=== PATIENT | female | born 1995 | race Caucasian/White ===

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

== ENCOUNTER 2017-05-08 19:01 | Emergency (ER) | payer OTHER ==
[2017-05-08 19:12] VITALS: BP 123/62; PULSE 80; TEMP 98; BMI 28.6
[2017-05-08] MEDS ORDERED: IBUPROFEN 600 MG TABLET (FP) PO ONE ×2 (19:35→19:48)
--- NOTE | 2017-05-08 19:43 | PDOC ---
History of Present Illness - General Chief Complaint: Sore Throat Stated Complaint: SORE THROAT Time Seen by Provider: 05/08/17 19:16 History Source: Patient Exam Limitations: No Limitations - History of Present Illness Initial Comments: 05/08/17 19:56 22-year-old female presents to the ED with sore throat since yesterday associate it with a frontal headache. Patient also complaining of nasal congestion. Patient denies fever, chills, recent travel, recent illness or recent sick contacts. Patient denies medical history. Timing/Duration: other Severity: mild Associated Symptoms: reports: headaches Past History - Travel Traveled outside of the country in the last 30 days: No Close contact w/someone who was outside of country & ill: No - Past Medical History Allergies/Adverse Reactions: Allergies Allergy/AdvReac Type Severity Reaction Status Date / Time Penicillins Allergy Intermediate Hives Verified 05/08/17 19:09 Home Medications: Ambulatory Orders NK [No Known Home Medication] 10/20/16 Asthma: No Cancer: No Cardiac Disorders: No Diabetes: No HTN: No Seizures: No Thyroid Disease: No Other medical history: Pt denies - Reproductive History (#): 3 Para: 0 Cervical CA: No Dysfunctional Uterine Bleeding: No Ectopic : No Endometrial CA: No Polycystic Ovaries: No Tubal Ligation: No Spontaneous : 2 - Immunization History Immunization Up to Date: Yes - Psycho/Social/Smoking Cessation Hx Anxiety: No Suicidal Ideation: No Smoking History: Never smoked Have you smoked in the past 12 months: No If you are a former smoker, when did you quit?: 06/2016 Information on smoking cessation initiated: No Hx Alcohol Use: No Drug/Substance Use Hx: No Substance Use Type: None Hx Substance Use Treatment: No Patient Lives Alone: No Lives with/in: spouse/SO Review of Systems - Review of Systems Able to Perform ROS?: No Is the patient limited Macedonian proficient: No Constitutional: No: Symptoms Reported HEENTM: Yes: Throat Pain Respiratory: No: Symptoms reported Musculoskeletal: No: Symptoms Reported Neurological: Yes: Headache Endocrine: No: Symptoms Reported *Physical Exam - Vital Signs Last Vital Signs Temp Pulse Resp BP Pulse Ox 98.0 F 80 20 123/62 99 05/08/17 19:10 05/08/17 19:10 05/08/17 19:10 05/08/17 19:10 05/08/17 19:10 - Physical Exam General Appearance: Yes: Nourished, Appropriately Dressed. No: Apparent Distress HEENT: positive: EOMI, MARGARITA, TMs Normal, Tonsillar Exudate (3+ right tonsil) Neck: positive: Supple, Lymphadenopathy (R) (upper cervical) Respiratory/Chest: positive: Lungs Clear, Normal Breath Sounds. negative: Respiratory Distress, Accessory Muscle Use Cardiovascular: positive: Regular Rhythm, Regular Rate. negative: Murmur Integumentary: positive: Normal Color, Warm, Moist Neurologic: positive: Motor Strength 5/5 (ambulatory) Medical Decision Making - Medical Decision Making 05/08/17 20:02 Patient with sore throat and headache. Patient on exam had exudate to 3+ tonsils on the right. Patient with a for rapid strep and Motrin. 05/08/17 20:07 strep negative. Patient will be given prescription for azithromycin due to clinical presentation *DC/Admit/Observation/Transfer Diagnosis at time of Disposition: Acute streptococcal pharyngitis - Discharge Dispostion Disposition: HOME Condition at time of disposition: Good - Referrals Referrals: Shasta Middleton MD [Primary Care Provider] - - Patient Instructions Printed Discharge Instructions: DI for Strep Throat Additional Instructions: Please take azithromycin as prescribed . May take Motrin for discomfort. please eat soft nonabrasive food.
== END 2017-05-08 20:14 | disposition home or self-care (01) ==
LOC: JERFT 19:01
DX: J02.0 Streptococcal pharyngitis (principal)
CPT/HCPCS: 87070; 87430; 99281-25

== ENCOUNTER 2017-07-04 22:57 | Emergency (ER) | payer OTHER ==
[2017-07-04 23:02] VITALS: BP 121/59; PULSE 95; TEMP 98.5; BMI 27.8
[2017-07-04 23:35] LABS: URINE APPEARANCE SLCLOUDY; URINE BILIRUBIN NEGATIVE (NEGATIVE); URINE BLOOD NEGATIVE (NEGATIVE); URINE COLOR YELLOW; URINE GLUCOSE (UA) NEGATIVE (NEGATIVE); URINE KETONE NEGATIVE (NEGATIVE); URINE LEUK ESTERASE NEGATIVE (NEGATIVE); URINE NITRITE NEGATIVE (NEGATIVE); URINE PROTEIN NEGATIVE (NEGATIVE); URINE UROBILINOGEN NEGATIVE mg/dL (0.2-1.0)
[2017-07-04 23:46] LABS: BASOPHIL 0.6 % (0-2.0); EOSINOPHIL 1.1 % (0-4.5); MCH 31.1 pg (25.7-33.7); MCHC 34.2 g/dl (32.0-36.0); MEAN PLT VOLUME 8.5 fl (7.5-11.1); NEUTROPHILS 61.4 % (42.8-82.8); PLATELET COUNT 338 K/MM3 (134-434); RDW 13.2 % (11.6-15.6); WHITE BLOOD COUNT 11.6 K/mm3 (4.0-10.0)
[2017-07-05 00:12] LABS: ALK PHOS 54 U/L (45-117); ANION GAP 8 (8-16); BILIRUBIN,TOTAL 0.3 mg/dL (0.2-1.0); CO2 26 mmol/L (21-32); CREATININE 0.7 mg/dL (0.55-1.02); GLUCOSE,RANDOM 83 mg/dL (74-106); SGOT/AST 22 U/L (15-37); SGPT/ALT 40 U/L (12-78)
--- NOTE | 2017-07-05 00:35 | PDOC ---
History of Present Illness - General Chief Complaint: Pain Stated Complaint: ABD PAIN () Time Seen by Provider: 07/04/17 23:18 History Source: Patient Exam Limitations: No Limitations - History of Present Illness Travel History: No Initial Comments: 07/05/17 00:26 22yo Female patient with no significant past medical history presents to ED c/o LLQ abd pain. Patient states she found out she was last week and began having pains yesterday. She denies vaginal bleeding, vomiting, diarrhea, fever, chills, diff breathing, or any other complaints at this time. LNMP: May 28. Timing/Duration: reports: constant Quality: reports: mild Abdominal Pain Onset Location: reports: LLQ Pain Radiation: reports: no radiation Activities at Onset: reports: none Past History - Travel Traveled outside of the country in the last 30 days: No Close contact w/someone who was outside of country & ill: No - Past Medical History Allergies/Adverse Reactions: Allergies Allergy/AdvReac Type Severity Reaction Status Date / Time Penicillins Allergy Intermediate Hives Verified 07/04/17 23:02 Home Medications: Ambulatory Orders Azithromycin [Zithromax 250mg Tablets -] 250 mg PO UTDICT #6 tab 05/08/17 Asthma: No Cancer: No Cardiac Disorders: No Diabetes: No HTN: No Seizures: No Thyroid Disease: No - Reproductive History (#): 3 Para: 0 Cervical CA: No Dysfunctional Uterine Bleeding: No Ectopic : No Endometrial CA: No Polycystic Ovaries: No Tubal Ligation: No Spontaneous : 2 - Immunization History Immunization Up to Date: Yes - Suicide/Smoking/Psychosocial Hx Smoking History: Never smoked Have you smoked in the past 12 months: No If you are a former smoker, when did you quit?: 06/2016 Hx Alcohol Use: No Drug/Substance Use Hx: No Substance Use Type: None Hx Substance Use Treatment: No Abd/GI Specific PMHX - Complaint Specific PMHX Colitis: No Diverticulitis: No Gall Bladder Disease: No GERD: No Hepatitis: No Irritable Bowel Synd (IBS): No Pancreatitis: No GI Ulcer Disease: No Review of Systems - Review of Systems Able to Perform ROS?: Yes Is the patient limited Serbian proficient: No Constitutional: No: Chills, Fever Respiratory: No: Cough, Shortness of Breath, Stridor Cardiac (ROS): No: Chest Pain, Chest Tightness ABD/GI: Yes: Nausea, Abdominal cramping (LLQ). No: Poor Appetite, Poor Fluid Intake, Vomiting : No: Burning, Dysuria, Hematuria, Pain, Urgency Musculoskeletal: No: Back Pain Integumentary: No: Bruising, Erythema, Rash All Other Systems: Reviewed and Negative *Physical Exam - Vital Signs Last Vital Signs Temp Pulse Resp BP Pulse Ox 98.5 F 95 H 18 121/59 99 07/04/17 22:59 07/04/17 22:59 07/04/17 22:59 07/04/17 22:59 07/04/17 22:59 - Physical Exam General Appearance: Yes: Nourished, Appropriately Dressed. No: Apparent Distress, Mild Distress, Moderate Distress, Severe Distress Neck: positive: Trachea midline, Supple. negative: Stridor, Lymphadenopathy (R) , Lymphadenopathy (L), Rigidity Respiratory/Chest: positive: Lungs Clear, Normal Breath Sounds. negative: Chest Tender, Respiratory Distress, Accessory Muscle Use, Labored Respiration, Rapid RR, Paradoxal Breathing, Stridor Cardiovascular: positive: Regular Rhythm, Regular Rate Gastrointestinal/Abdominal: positive: Normal Bowel Sounds, Tender, Soft, Tenderness (LLQ). negative: Distended, Guarding, Rebound Musculoskeletal: positive: Normal Inspection. negative: CVA Tenderness, Vertebral Tenderness Extremity: positive: Normal Capillary Refill, Normal Inspection, Normal Range of Motion. negative: Pedal Edema, Swelling, Calf Tenderness, Erythema, Inflammation Integumentary: positive: Normal Color, Dry, Warm Neurologic: positive: warehouse logistics manager II-XII NML intact, Fully Oriented, Alert, Normal Mood/ Affect, Normal Response, Motor Strength 5/5 ED Treatment Course - LABORATORY CBC & Chemistry Diagram: 07/04/17 23:30 07/04/17 23:30 - ADDITIONAL ORDERS Additional order review: Laboratory Results 07/04/17 07/04/17 07/04/17 23:30 23:19 23:16 Sodium 139 Potassium 4.3 Chloride 105 Carbon Dioxide 26 Anion Gap 8 BUN 7 D Creatinine 0.7 Creat Clearance w eGFR > 60 Random Glucose 83 Calcium 9.0 Total Bilirubin 0.3 D AST 22 D ALT 40 D Alkaline Phosphatase 54 D Total Protein 7.0 Albumin 4.0 Lipase 117 Urine Color Yellow Urine Appearance Slcloudy Urine pH 7.0 Urine Protein Negative Urine Glucose (UA) Negative Urine Ketones Negative Urine Blood Negative Urine Nitrite Negative Urine Bilirubin Negative Urine Urobilinogen Negative Urine HCG, Qual Positive 07/04/17 23:30 RBC 4.27 MCV 91.0 MCHC 34.2 RDW 13.2 MPV 8.5 Neutrophils % 61.4 D Lymphocytes % 29.3 D Monocytes % 7.6 Eosinophils % 1.1 D Basophils % 0.6 - RADIOLOGY Radiology Studies Ordered: Category Date Time Status TRANSVAGINAL ULTRASOUND US [US] Stat Ultrasound 07/05/17 00:24 Ordered *DC/Admit/Observation/Transfer Diagnosis at time of Disposition: Abdominal pain during Qualifiers: Trimester: first trimester Qualified Code(s): O26.891 - Other specified related conditions, first trimester; R10.9 - Unspecified abdominal pain - Discharge Dispostion Disposition: HOME Condition at time of disposition: Stable Admit: No - Patient Instructions Printed Discharge Instructions: DI for Abdominal Pain -- Early Additional Instructions: Follow up with your HIV CTS SPECIALIST this week for further evaluation. Return if symptoms worsen or any concerns for further evaluation. Drink plenty fluids. Print Language: LAO
--- NOTE | 2017-07-05 02:05 | PDOC ---
*Physical Exam - Vital Signs Last Vital Signs Temp Pulse Resp BP Pulse Ox 98.5 F 95 H 18 121/59 99 07/04/17 22:59 07/04/17 22:59 07/04/17 22:59 07/04/17 22:59 07/04/17 22:59 Heart Score/ECG Review - ECG Intrepretation Rhythm: Regular Rhythm - Mears Mears: Normal - P and [place] Delta Wave(s) Present: No WPW: No - ECG Impressions Ischemic Changes: No ED Treatment Course - LABORATORY CBC & Chemistry Diagram: 07/04/17 23:30 07/04/17 23:30 - ADDITIONAL ORDERS Additional order review: Laboratory Results 07/04/17 07/04/17 07/04/17 23:30 23:30 23:30 Sodium 139 Potassium 4.3 Chloride 105 Carbon Dioxide 26 Anion Gap 8 BUN 7 D Creatinine 0.7 Creat Clearance w eGFR > 60 Random Glucose 83 Calcium 9.0 Total Bilirubin 0.3 D AST 22 D ALT 40 D Alkaline Phosphatase 54 D Total Protein 7.0 Albumin 4.0 Lipase 117 Beta HCG, Quant 4275.2 Urine Color Urine Appearance Urine pH Urine Protein Urine Glucose (UA) Urine Ketones Urine Blood Urine Nitrite Urine Bilirubin Urine Urobilinogen Urine HCG, Qual Blood Type O POSITIVE Antibody Screen Negative 07/04/17 07/04/17 23:19 23:16 Sodium Potassium Chloride Carbon Dioxide Anion Gap BUN Creatinine Creat Clearance w eGFR Random Glucose Calcium Total Bilirubin AST ALT Alkaline Phosphatase Total Protein Albumin Lipase Beta HCG, Quant Urine Color Yellow Urine Appearance Slcloudy Urine pH 7.0 Urine Protein Negative Urine Glucose (UA) Negative Urine Ketones Negative Urine Blood Negative Urine Nitrite Negative Urine Bilirubin Negative Urine Urobilinogen Negative Urine HCG, Qual Positive Blood Type Antibody Screen 07/04/17 23:30 RBC 4.27 MCV 91.0 MCHC 34.2 RDW 13.2 MPV 8.5 Neutrophils % 61.4 D Lymphocytes % 29.3 D Monocytes % 7.6 Eosinophils % 1.1 D Basophils % 0.6 Medical Decision Making - Medical Decision Making 07/05/17 02:03
--- NOTE | 2017-07-05 13:00 | EKG ---
Test Reason : Blood Pressure : / mmHG Vent. Rate : 093 BPM Atrial Rate : 093 BPM P-R Int : 150 ms QRS Dur : 084 ms QT Int : 338 ms P-R-T Axes : 039 080 040 degrees QTc Int : 420 ms NORMAL SINUS RHYTHM POSSIBLE LEFT ATRIAL ENLARGEMENT WHEN COMPARED WITH ECG OF 20-OCT-2016 14:12, T WAVE AMPLITUDE HAS INCREASED IN LATERAL LEADS Confirmed by STEFANIE ART MD ([id number]) on 07/05/2017 12:59:45 PM Referred By: Confirmed By:STEFANIE ART MD
== END 2017-07-05 03:30 | disposition home or self-care (01) ==
LOC: JER 22:57
DX: O26.891 Other specified pregnancy related conditions, first trimester (principal); Z3A.01 Less than 8 weeks gestation of pregnancy; R10.9 Unspecified abdominal pain
CPT/HCPCS: 36415; 76817-TC; 80053; 81003; 83690; 84702; 84703; 85025; 86850; 86900; 86901; 93005; 93010; 99282-25

== ENCOUNTER 2017-07-24 14:08 | Emergency (ER) | payer OTHER ==
[2017-07-24 14:23] VITALS: BP 115/50; PULSE 91; TEMP 98.7; BMI 27.4
--- NOTE | 2017-07-24 15:59 | PDOC ---
History of Present Illness - General Chief Complaint: Injury Stated Complaint: INJURY TO FINGER Time Seen by Provider: 07/24/17 15:33 History Source: Patient Exam Limitations: No Limitations - History of Present Illness Initial Comments: 07/24/17 15:53 22 yr female with injury to left middle finger 3 weeks ago feels a bump. Occurred: reports: other (3 weeks ago ) Upper Extremity Pain Location: left: 3rd finger Method of Injury: reports: other (crushed in between a fridge door ) Past History - Past Medical History Allergies/Adverse Reactions: Allergies Allergy/AdvReac Type Severity Reaction Status Date / Time Penicillins Allergy Intermediate Hives Verified 07/24/17 14:19 Home Medications: Ambulatory Orders NK [No Known Home Medication] 07/24/17 Asthma: No Cancer: No Cardiac Disorders: No Diabetes: No HTN: No Seizures: No Thyroid Disease: No Other medical history: denies. - Reproductive History (#): 3 Para: 0 Cervical CA: No Dysfunctional Uterine Bleeding: No Ectopic : No Endometrial CA: No Polycystic Ovaries: No Tubal Ligation: No Spontaneous : 2 - Immunization History Immunization Up to Date: Yes - Suicide/Smoking/Psychosocial Hx Smoking History: Never smoked Have you smoked in the past 12 months: No If you are a former smoker, when did you quit?: 06/2016 Hx Alcohol Use: No Drug/Substance Use Hx: No Substance Use Type: None Hx Substance Use Treatment: No Review of Systems - Review of Systems Able to Perform ROS?: Yes Is the patient limited Chadian proficient: No Constitutional: No: Symptoms Reported HEENTM: No: Symptoms Reported Respiratory: No: Symptoms reported Cardiac (ROS): No: Symptoms Reported ABD/GI: No: Symptoms Reported : No: Symptoms Reported Musculoskeletal: Yes: See HPI *Physical Exam - Vital Signs Last Vital Signs Temp Pulse Resp BP Pulse Ox 98.7 F 91 H 19 115/50 100 07/24/17 14:19 07/24/17 14:19 07/24/17 14:19 07/24/17 14:19 07/24/17 14:19 - Physical Exam General Appearance: Yes: Nourished, Appropriately Dressed HEENT: positive: EOMI, MARGARITA, Normal ENT Inspection, TMs Normal, Pharynx Normal Neck: positive: Supple. negative: Tender Respiratory/Chest: positive: Lungs Clear, Normal Breath Sounds Cardiovascular: positive: Regular Rhythm, Regular Rate Extremity: positive: Normal Capillary Refill, Normal Inspection, Normal Range of Motion, Swelling (left third digit swollen inbetween the DIP and PIP joint , nv intact FROM skin intact ) Integumentary: positive: Normal Color, Dry, Warm Neurologic: positive: Fully Oriented, Alert, Normal Mood/Affect, Normal Response , Motor Strength 02/07 ED Treatment Course - RADIOLOGY Radiology Studies Ordered: Category Date Time Status FINGER(S) LEFT [RAD] Stat Radiology 07/24/17 15:51 Ordered Medical Decision Making - Medical Decision Making 07/24/17 15:57 cc: finger injury 3 weeks ago has continued pain and swelling at the site *DC/Admit/Observation/Transfer Diagnosis at time of Disposition: Injury, finger Qualifiers: Encounter type: initial encounter Laterality: left Qualified Code(s): S69.92XA - Unspecified injury of left wrist, hand and finger(s), initial encounter; S69.92XA - Unspecified injury of left wrist, hand and finger(s), initial encounter - Discharge Dispostion Disposition: HOME Condition at time of disposition: Good - Referrals Referrals: Shasta Middleton MD [Primary Care Provider] - Jose Feng MD [Staff Physician] - - Patient Instructions Additional Instructions: follow up with the hand specialist if symptoms worsen the xray done today was normal did not show any broken bones
== END 2017-07-24 16:51 | disposition home or self-care (01) ==
LOC: JERFT 14:08
DX: S69.82XA Other specified injuries of left wrist, hand and finger(s), initial encounter (principal); X58.XXXA Exposure to other specified factors, initial encounter; Y93.89 Activity, other specified; Y92.89 Other specified places as the place of occurrence of the external cause; Y99.8 Other external cause status
CPT/HCPCS: 73140-TC-LT; 99281-25

== ENCOUNTER 2018-01-20 22:56 | Emergency (ER) | payer OTHER ==
[2018-01-20 23:07] VITALS: BP 124/64; PULSE 119; TEMP 98.7; BMI 28.2
--- NOTE | 2018-01-20 23:45 | PDOC ---
History of Present Illness - General Chief Complaint: Allergic Reaction Stated Complaint: ALLERGICA REACTION Time Seen by Provider: 01/20/18 23:34 History Source: Patient Exam Limitations: No Limitations - History of Present Illness Initial Comments: CHIEF COMPLAINT: 22 y/o afebrile female c/o sore throat x 2 days and allergic reaction today. HISTORY OF PRESENT ILLNESS: The patient states she was seen at another hospital yesterday for her sore throat, was prescribed Cepacol for her symptoms and discharged. She states since starting the cepacol she's had a rash and itching to her face and hands. She states it hurts to swallow still and she has a runny nose. She denies fever but has been taking ibuprofen for the pain every 6 hours. She denies lip/tongue swelling, SOB, CP. Vital signs on arrival are notable for pulse of 119. REVIEW OF SYSTEMS: GENERAL/CONSTITUTIONAL: No fever HEAD, EYES, EARS, NOSE AND THROAT: No ear pain or discharge. + sore throat. CARDIOVASCULAR: No chest pain or shortness of breath. RESPIRATORY: No cough, wheezing, or hemoptysis. GASTROINTESTINAL: No abd pain, nausea, vomiting, diarrhea. GENITOURINARY: No dysuria, frequency, or change in urination. MUSCULOSKELETAL: No joint or muscle swelling or pain. No neck or back pain. SKIN: +itchy rash to face and hands. NEUROLOGIC: No headache, vertigo, loss of consciousness, or loss of sensation. PHYSICAL EXAM: GENERAL: The patient is awake, alert, and fully oriented, in no acute distress. She is well appearing. HEAD: Normal with no signs of trauma. NECK: Tender anterior cervical lymphadenopathy. ENT: Pupils equal, round and reactive to light, extraocular movements intact, sclera anicteric, conjunctiva clear. 2+ erythematous tonsils R>L with exudate noted on right tonsil. Uvula midline. No soft/hard palate deformities. No trismus. No angioedema. LUNGS: Clear to auscultation bilaterally. Normal excursion. No respiratory distress or use of accessory muscles. CV: RRR, S1/S2, no MRG. Cap refill < 2 sec. ABDOMEN: Soft, non-distended, non-tender even to deep palpation, no hepatomegaly or splenomegaly, no masses. EXTREMITIES: Normal range of motion, no edema. NEUROLOGICAL: Normal speech, normal gait. CN II-XII grossly intact. PSYCH: Normal mood, normal affect. SKIN: No rash or swelling to face. Minimal erythema to b/l hands. Past History - Past Medical History Allergies/Adverse Reactions: Allergies Allergy/AdvReac Type Severity Reaction Status Date / Time Penicillins Allergy Intermediate Hives Verified 01/20/18 23:01 Home Medications: Ambulatory Orders Azithromycin [Zithromax 250mg Tablets -] 250 mg PO UTDICT #6 tab 01/20/18 Asthma: No Cancer: No Cardiac Disorders: No COPD: No Diabetes: No HTN: No Seizures: No Thyroid Disease: No - Reproductive History (#): 3 Para: 0 Cervical CA: No Dysfunctional Uterine Bleeding: No Ectopic : No Endometrial CA: No Polycystic Ovaries: No Tubal Ligation: No Spontaneous : 2 - Immunization History Immunization Up to Date: Yes - Suicide/Smoking/Psychosocial Hx Smoking History: Never smoked Have you smoked in the past 12 months: No If you are a former smoker, when did you quit?: 06/2016 Information on smoking cessation initiated: No Hx Alcohol Use: No Drug/Substance Use Hx: No Substance Use Type: None Hx Substance Use Treatment: No *Physical Exam - Vital Signs Last Vital Signs Temp Pulse Resp BP Pulse Ox 98.7 F 119 H 20 124/64 99 01/20/18 23:02 01/20/18 23:02 01/20/18 23:02 01/20/18 23:02 01/20/18 23:02 Medical Decision Making - Medical Decision Making A/P: 22 y/o female with clinical strep throat. Will discharge with rx for azithro. Instructed her to stop taking the cephacol and drink plenty of fluids at home. Suggested she continue taking ibuprofen for sore throat as prescribed and gargle with warm salt water multiple times per day. Instructed her to f/u with her doctor within 1 week and return to the ER with any worsening or concerning symptoms. The patient verbalizes understanding of all instructions, has no further questions and is awaiting discharge. *DC/Admit/Observation/Transfer Diagnosis at time of Disposition: Strep throat Allergic reaction caused by a drug Qualifiers: Encounter type: initial encounter Qualified Code(s): T78.40XA - Allergy, unspecified, initial encounter - Discharge Dispostion Disposition: HOME Condition at time of disposition: Good - Prescriptions Prescriptions: Azithromycin [Zithromax 250mg Tablets -] 250 mg PO UTDICT #6 tab - Referrals Referrals: Shasta Middleton MD [Primary Care Provider] - - Patient Instructions Printed Discharge Instructions: DI for Strep Throat, DI for Adverse Drug Reaction -- Allergic Additional Instructions: Discharge Instructions: -You have strep throat -you had an allergic reaction to Cepacol; please do not take this medication any more -Drink at least 64oz of water daily; gargle with warm salt water multiple times per day -Follow up with your doctor within 1 week -Return to the ER with any worsening or concerning symptoms - Post Discharge Activity
== END 2018-01-20 23:51 | disposition home or self-care (01) ==
LOC: JER 22:56
DX: T78.40XA Allergy, unspecified, initial encounter (principal); J02.0 Streptococcal pharyngitis
CPT/HCPCS: 99281-25

== ENCOUNTER 2018-02-20 13:54 | Emergency (ER) | payer OTHER ==
[2018-02-20 14:17] VITALS: BP 132/52; PULSE 52; TEMP 98.2; BMI 28.2
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
[2018-02-20 15:04] LABS: URINE APPEARANCE CLEAR; URINE BILIRUBIN NEGATIVE (<2.0 mg/dL); URINE COLOR STRAW; URINE GLUCOSE (UA) NEGATIVE (NEGATIVE); URINE KETONE NEGATIVE (NEGATIVE); URINE LEUK ESTERASE NEGATIVE (NEGATIVE); URINE NITRITE NEGATIVE (NEGATIVE); URINE PROTEIN NEGATIVE (NEGATIVE); URINE UROBILINOGEN NEGATIVE mg/dL (0.2-1.0)
[2018-02-20] MEDS ORDERED: KETOROLAC TROMETHAMINE 60 MG/2 ML VIAL IM ONE (15:10)
[2018-02-20] MEDS ORDERED: KETOROLAC TROMETHAMINE 60 MG/2 ML VIAL ONE (15:17)
== END 2018-02-20 15:42 | disposition home or self-care (01) ==
LOC: JER 13:54
PROC: 3E0233Z Introduction of Anti-inflammatory into Muscle, Percutaneous Approach (ICD-10-PCS; principal; 2018-02-20)
DX: S32.2XXA Fracture of coccyx, initial encounter for closed fracture (principal); Y04.8XXA Assault by other bodily force, initial encounter; Y93.89 Activity, other specified; Y92.89 Other specified places as the place of occurrence of the external cause; Y99.8 Other external cause status
CPT/HCPCS: 72220-TC-FY; 81003; 84703; 96372; 99281-25

== ENCOUNTER 2018-02-23 02:59 | Emergency (ER) | payer OTHER ==
[2018-02-23 04:15] VITALS: BP 110/72; PULSE 82; TEMP 98.2; BMI 62.2
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
--- NOTE | 2018-02-23 05:45 | PDOC ---
Attending Attestation - Resident Resident Name: [email or web address] - HPI HPI: 02/23/18 05:41 Pt eloped from the emergency department prior to my evaluation. A call was made to listed number of [phone] with no answer 02/23/18 06:22 Attempted to call patient again with no response - Physicial Exam PE: 02/23/18 19:27 see above - Medical Decision Making 02/23/18 19:27 see above
== END 2018-02-23 05:44 | disposition left against medical advice (07) ==
LOC: SUPCPDRO 02:59 → JER 02:59
DX: M53.3 Sacrococcygeal disorders, not elsewhere classified (principal); Y08.89XD Assault by other specified means, subsequent encounter
CPT/HCPCS: 99281-25

== ENCOUNTER 2018-03-02 00:41 | Emergency (ER) | payer OTHER ==
--- NOTE | 2018-03-02 02:17 | PDOC ---
History of Present Illness - General Chief Complaint: Back Pain Stated Complaint: BACK PAIN Time Seen by Provider: 03/02/18 02:17 - History of Present Illness Initial Comments: 23 year old female previously healthy presenting with pain in her back for the past two weeks after a fall onto her buttocks. Previous coccyx films were negative for fracture. Her pain is refractory to Motrin 800 daily, and donut pillow usage. Denies fevers, chills, nausea, vomiting, saddle anesthesia, fecal incontinence, or other symptoms. 03/02/18 02:53 Past History - Past Medical History Allergies/Adverse Reactions: Allergies Allergy/AdvReac Type Severity Reaction Status Date / Time Penicillins Allergy Intermediate Hives Verified 03/02/18 01:53 Home Medications: Ambulatory Orders Naproxen [Naprosyn -] 500 mg PO BID PRN 15 Days #30 tablet 03/02/18 predniSONE [Deltasone -] 30 mg PO ASDIR 2 Days #6 tab 03/02/18 Asthma: No Cancer: No Cardiac Disorders: No COPD: No Diabetes: No HTN: No Seizures: No Thyroid Disease: No - Reproductive History (#): 3 Para: 0 Cervical CA: No Dysfunctional Uterine Bleeding: No Ectopic : No Endometrial CA: No Polycystic Ovaries: No Tubal Ligation: No Spontaneous : 2 - Immunization History Immunization Up to Date: Yes - Suicide/Smoking/Psychosocial Hx Smoking History: Never smoked Have you smoked in the past 12 months: No If you are a former smoker, when did you quit?: 06/2016 Hx Alcohol Use: No Drug/Substance Use Hx: No Substance Use Type: None Hx Substance Use Treatment: No Review of Systems - Review of Systems Constitutional: No: Chills, Diaphoresis, Fever, Loss of Appetite HEENTM: No: Eye Pain, Blurred Vision, Tearing Respiratory: No: Cough, Orthopnea, Shortness of Breath Cardiac (ROS): No: Chest Pain, Edema, Irregular Heart Rate ABD/GI: No: Abdominal Distended, Diarrhea, Nausea, Vomiting : No: Burning, Dysuria, Discharge, Frequency Musculoskeletal: Yes: Back Pain, Muscle Pain. No: Muscle Weakness Integumentary: No: Lumps, Pallor, Pruritus, Rash Neurological: No: Headache, Numbness, Paresthesia, Tingling, Tremors, Weakness, Unsteady Gait, Ataxia, Dizziness Hematologic/Lymphatic: No: Anemia, Blood Clots, Easy Bleeding *Physical Exam - Physical Exam General Appearance: Yes: Nourished, Appropriately Dressed. No: Apparent Distress HEENT: positive: EOMI, MARGARITA, Normal ENT Inspection, Normal Voice Neck: positive: Trachea midline, Normal Thyroid, Supple. negative: Tender, Rigid Respiratory/Chest: positive: Lungs Clear, Normal Breath Sounds. negative: Chest Tender, Respiratory Distress, Accessory Muscle Use Cardiovascular: positive: Regular Rhythm, Regular Rate Gastrointestinal/Abdominal: positive: Normal Bowel Sounds, Flat, Soft. negative : Tender Musculoskeletal: positive: Muscle Spasm (right lower back spasm with some tenderness over upper coccyx. ). negative: Normal Inspection, Vertebral Tenderness Extremity: positive: Normal Capillary Refill, Normal Inspection, Normal Range of Motion. negative: Tender Integumentary: positive: Normal Color, Dry, Warm Neurologic: positive: Fully Oriented, Alert, Normal Mood/Affect, Normal Response , Motor Strength 5/5 Medical Decision Making - Medical Decision Making 23 year old female with residual cocygeal pain after fall onto buttox two weeks prior despite negative coccyx films. Will DC patient home with ortho, neurosrg, and prednisone x 3 days. 03/02/18 03:10 *DC/Admit/Observation/Transfer Diagnosis at time of Disposition: Coccyx contusion Qualifiers: Encounter type: subsequent encounter Qualified Code(s): S30.0XXD - Contusion of lower back and pelvis, subsequent encounter - Discharge Dispostion Disposition: HOME Condition at time of disposition: Improved Decision to Admit order: No - Prescriptions Prescriptions: Naproxen [Naprosyn -] 500 mg PO BID PRN 15 Days #30 tablet PRN Reason: Pain predniSONE [Deltasone -] 30 mg PO ASDIR 2 Days #6 tab - Referrals Referrals: Shasta Middleton MD [Primary Care Provider] - Denis Ocasio MD [Staff Physician] - Abel Pastor MD [Staff Physician] - - Patient Instructions Printed Discharge Instructions: DI for Contusion Additional Instructions: You do not have a fracture of your tailbone but you may have bruised it. Please use the steroids for two more days (30 mg each day). Please use the naproxen 500 MG up to twice a day. Do NOT use the Ibuprofen or Motrin along with the Naproxen. You CAN use tylenol along with the naproxen. Please follow up with the orthopedic surgeon within the next week and the neurosurgeon as well. Please come back to the ED if you have new or worsening symptoms. - Post Discharge Activity
[2018-03-02 02:31] VITALS: BP 110/45; PULSE 65; TEMP 97.4; BMI 28.2
[2018-03-02] MEDS ORDERED: predniSONE 10 MG TABLET (UD) PO ONE (03:11)
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
[2018-03-02] MEDS ORDERED: predniSONE 20 MG TABLET (UD) ONE (03:40)
[2018-03-02] MEDS ORDERED: predniSONE 10 MG TABLET (UD) ONE (03:40)
== END 2018-03-02 03:31 | disposition home or self-care (01) ==
LOC: JER 00:41
DX: S30.0XXD Contusion of lower back and pelvis, subsequent encounter (principal); Y04.2XXD Assault by strike against or bumped into by another person, subsequent encounter
CPT/HCPCS: 99281-25

== ENCOUNTER 2018-04-17 13:20 | Emergency (ER) | payer OTHER ==
[2018-04-17 13:39] VITALS: BP 110/62; PULSE 84; TEMP 99; BMI 28.3
--- NOTE | 2018-04-17 14:04 | PDOC ---
History of Present Illness - General Chief Complaint: Pain, Acute Stated Complaint: ARM PAIN Time Seen by Provider: 04/17/18 13:51 History Source: Patient Exam Limitations: No Limitations - History of Present Illness Initial Comments: 04/17/18 14:00 23 yr female with orthoglass splint to her right hand states placed at another hospital 4 days ago is here for increased pain and the splint is falling apart. pt denies numbness or tingling. Pt states she also is unable to see the orthopedist they gave her due to insurance. Past History - Past Medical History Allergies/Adverse Reactions: Allergies Allergy/AdvReac Type Severity Reaction Status Date / Time Penicillins Allergy Intermediate Hives Verified 04/17/18 13:34 Home Medications: Ambulatory Orders NK [No Known Home Medication] 04/17/18 Asthma: No Cancer: No Cardiac Disorders: No COPD: No Diabetes: No HTN: No Seizures: No Thyroid Disease: No Other medical history: DENIES. - Reproductive History (#): 3 Para: 0 Cervical CA: No Dysfunctional Uterine Bleeding: No Ectopic : No Endometrial CA: No Polycystic Ovaries: No Tubal Ligation: No Spontaneous : 2 - Immunization History Immunization Up to Date: Yes - Suicide/Smoking/Psychosocial Hx Smoking History: Never smoked Have you smoked in the past 12 months: No If you are a former smoker, when did you quit?: 06/2016 Hx Alcohol Use: No Drug/Substance Use Hx: No Substance Use Type: None Hx Substance Use Treatment: No *Physical Exam - Vital Signs Last Vital Signs Temp Pulse Resp BP Pulse Ox 99 F 84 17 110/62 99 04/17/18 13:34 04/17/18 13:34 04/17/18 13:34 04/17/18 13:34 04/17/18 13:34 - Physical Exam General Appearance: Yes: Nourished, Appropriately Dressed HEENT: positive: EOMI, MARGARITA Musculoskeletal: positive: Normal Inspection Extremity: positive: Normal Capillary Refill, Normal Inspection, Normal Range of Motion, Other (left hand in ulnar gutter splint nv intact warm pink cap refill less than 2 seconds all digits. ) Integumentary: positive: Normal Color, Dry, Warm Neurologic: positive: Fully Oriented, Alert, Normal Mood/Affect, Normal Response , Motor Strength 5/5 Procedures - Splinting Kyle Bandage: yes, 4" (re wrapped her splint, with kyle bandages. orthoglass intact ) Medical Decision Making - Medical Decision Making 04/17/18 14:14 cc: here for cast check, I have removed the ortho glass splint all digits are warm pink nv intact TTP over the base of the 5th metacarpal with echymosis and swelling I have replaced the orth orthoglass splint with the original splint and re-wrapped with new gauze. pt is thankful for the dressing change, I have given her 's info *DC/Admit/Observation/Transfer Diagnosis at time of Disposition: Aftercare for cast or splint check or change - Discharge Dispostion Disposition: HOME Condition at time of disposition: Good - Referrals Referrals: Zeus De La Torre MD [Staff Physician] - - Patient Instructions Additional Instructions: follow with for follow up keep splint dry take naprosyn or over the counter ibuprofen 800mg every 8hrs for pain - Post Discharge Activity
== END 2018-04-17 14:12 | disposition home or self-care (01) ==
LOC: JERFT 13:20
PROC: 2W3DX1Z Immobilization of Left Lower Arm using Splint (ICD-10-PCS; principal; 2018-04-17)
DX: Z47.89 Encounter for other orthopedic aftercare (principal)
CPT/HCPCS: 29125; 99281-25

== ENCOUNTER 2018-08-12 09:52 | Emergency (ER) | payer OTHER ==
[2018-08-12 10:05] VITALS: TEMP 98.3; BMI 30.9
[2018-08-12] MEDS ORDERED: LACTATED RINGERS SOLUTION 1,000 ML IV STA (10:15)
--- NOTE | 2018-08-12 10:15 | PDOC ---
History of Present Illness - General Chief Complaint: Pain Stated Complaint: NAUSEA/VOMITING, DRINKING ALCOHOL LAST NIGHT Time Seen by Provider: 08/12/18 10:15 History Source: Patient Exam Limitations: No Limitations - History of Present Illness Initial Comments: 08/12/18 11:20 Ms Lauren is a 23 year old female with no significant past medical history who presents to the emergency department with nausea, NBNB vomiting and diarrhea since this morning. The patient reports that she was out last night and had about 4-5 drinks(vodka and whiskey). The patient reports some associated 6-7 episodes of vomiting when she woke up this morning as well as 1 episode of diarrhea. The patient reports that she was unable to function as normally. She states that she bent down to help her child with something and subsequently felt dizzy when she got back up. The patient states that she tried to hydrate herself but vomited. She denies any back pain or headache. She denies any other symptoms . She denies any fever, chills, constipation or urinary symptoms. She denies any chest pain, shortness of breath, or dizziness at time of exam. The patient denies any other complaints. Past History - Past Medical History Allergies/Adverse Reactions: Allergies Allergy/AdvReac Type Severity Reaction Status Date / Time Penicillins Allergy Intermediate Hives Verified 08/12/18 10:04 Home Medications: Ambulatory Orders Ondansetron [Zofran Odt -] 4 mg SL TID PRN #6 od.tablet 08/12/18 Asthma: No Cancer: No Cardiac Disorders: No COPD: No Diabetes: No HTN: No Seizures: No Thyroid Disease: No - Reproductive History (#): 3 Para: 0 Cervical CA: No Dysfunctional Uterine Bleeding: No Ectopic : No Endometrial CA: No Polycystic Ovaries: No Tubal Ligation: No Spontaneous : 2 - Immunization History Immunization Up to Date: Yes - Suicide/Smoking/Psychosocial Hx Smoking History: Never smoked Have you smoked in the past 12 months: No If you are a former smoker, when did you quit?: 06/2016 Information on smoking cessation initiated: No Hx Alcohol Use: No Drug/Substance Use Hx: No Substance Use Type: None Hx Substance Use Treatment: No Abd/GI Specific PMHX - Complaint Specific PMHX Colitis: No Diverticulitis: No Gall Bladder Disease: No GERD: No Hepatitis: No Irritable Bowel Synd (IBS): No Pancreatitis: No GI Ulcer Disease: No Review of Systems - Review of Systems Able to Perform ROS?: Yes Comments:: 08/12/18 11:19 Constitutional: no fevers or chills. HEENT: no headache. + dizziness. No congestion. No visual/hearing disturbances. CVS: no cp or syncope. Resp: no sob. No cough. Abdomen: +abdominal pain, nausea, diarrhea and vomiting. Genitourinary: no urinary sx, hematuria. MUSCULOSKELETAL: No joint pain and swelling. No neck or back pain. SKIN: no redness or skin changes, no discharge, no rash. No wounds. Hematologic: no easy bruising/bleeding. NEUROLOGIC: +dizziness, No headache, LOC or altered mental status. No weakness , numbness or tingling. All other systems reviewed and negative, or as documented in HPI. 08/12/18 11:20 *Physical Exam - Vital Signs Last Vital Signs Temp Pulse Resp BP Pulse Ox 98.3 F 105 H 19 135/84 100 08/12/18 10:02 08/12/18 10:02 08/12/18 10:02 08/12/18 10:02 08/12/18 10:02 - Physical Exam Comments: 08/12/18 11:20 General: Well appearing, awake and alert, NAD. HEENT: NCAT, PERRL, EOMI, clear conjunctiva, anicteric, moist mucus membranes, clear oropharynx, no oral lesions.. Neck: neck supple, FROM Resp: CTAB, normal and even respirations, no respiratory distress CVS: RRR, no murmurs, 2+ peripheral pulses throughout, no peripheral edema Abdomen: soft, NTND, no peritoneal signs. Back: nontender, normal inspection and ROM MSK: no edema, LEMUS x4, ROM intact. No clubbing or cyanosis. normal bulk and tone. Extrem: no calf tenderness Neuro: alert, oriented appropriately; no focal neurologic deficits Skin: warm and well perfused, cap refill <2 sec, normal color ED Treatment Course - LABORATORY CBC & Chemistry Diagram: 08/12/18 10:35 08/12/18 10:35 Medical Decision Making - Medical Decision Making 08/12/18 11:14 23 YOF with AP, N/v after drinking ETOH last night. DDx. alcohol poisoning, PUD, gastritis, sean leblanc tear, pancreatitis, hepatitis, electrolyte/metabolic derangements. Vital signs reviewed, wnl. mild tachy from nausea initially Prior notes reviewed, including admissions, discharges and consultations. laboratory results and imaging reviewed, basic labs and lytes wnl, notable for_ . neg preg test ED course: no acute events, remained stable and well appearing. Clinically improved after interventions, including IVF and zofran, feels much improved. abdomen soft and benign, well appearing. doubt intra abdominal pathology/ infection, no peritoneal signs. eager for discharge. repeat vs wnl, remains comfortable Dispo: I discussed the physical exam findings, ancillary test results and final diagnoses with the patient. I answered all of the patient's questions. The patient was satisfied with the care received and felt comfortable with the discharge plan and treatment plan. The patient will return to the Emergency Department with any new, persistent or worsening symptoms. Rx zofran PRN for nausea, avoid binge drinking in future. 08/12/18 11:17 08/12/18 11:21 *DC/Admit/Observation/Transfer Diagnosis at time of Disposition: Nausea & vomiting - Discharge Dispostion Disposition: HOME Condition at time of disposition: Improved Decision to Admit order: No - Prescriptions Prescriptions: Ondansetron [Zofran Odt -] 4 mg SL TID PRN #6 od.tablet PRN Reason: Nausea And/Or Vomiting - Referrals Referrals: Bev Quigley MD [Primary Care Provider] - - Patient Instructions Printed Discharge Instructions: DI for Vomiting -- Adult, DI for Alcohol Poisoning, DI for Alcoholic Gastritis Additional Instructions: Your laboratory / imaging results were normal, which have been provided Follow up with your physician and consultants as instructed, take your medications as instructed including zofran every 8 hours as needed Return if worsening symptoms including fevers, headache, vomiting, visual or hearing disturbances, abdominal pain, chest pain, shortness of breath, syncope, dehydration, inability to take things by mouth/vomiting, altered mental status, or worsening concerning symptoms. minimize binge drinking to avoid bad hangovers. do not drink alcohol with your medications. ====== - Post Discharge Activity
[2018-08-12] MEDS ORDERED: ONDANSETRON 4 MG/2 ML VIAL IVPUSH ONE (10:16)
[2018-08-12] MEDS ORDERED: ONDANSETRON 4 MG/2 ML VIAL ONE (10:20)
[2018-08-12 10:44] LABS: BASO % 0.6 % (0-2.0); HEMATOCRIT 44.3 % (32.4-45.2); LYMPH % 14.1 % (8-40); MCH 31.4 pg (25.7-33.7); MCHC 33.8 g/dl (32.0-36.0); MEAN CELL VOLUME 92.7 fl (80-96); MEAN PLT VOLUME 8.1 fl (7.5-11.1); MONO % 3.8 % (3.8-10.2); NEUT % 81.5 % (42.8-82.8); PLATELET COUNT 363 K/MM3 (134-434); RBC 4.77 M/mm3 (3.60-5.2); WHITE BLOOD COUNT 11.5 K/mm3 (4.0-10.0)
[2018-08-12 11:17] LABS: ALBUMIN 4.5 g/dl (3.4-5.0); ALK PHOS 47 U/L (45-117); ANION GAP 8 MMOL/L (8-16); BILIRUBIN,TOTAL 0.6 mg/dL (0.2-1); BLOOD UREA NITROGEN 10 mg/dL (7-18); CALCIUM 9.7 mg/dL (8.5-10.1); CHLORIDE 108 mmol/L (98-107); CO2 25 mmol/L (21-32); CREATININE 0.7 mg/dL (0.55-1.3); GLUCOSE,RANDOM 90 mg/dL (74-106); LIPASE 85 U/L (73-393); POTASSIUM 5.3 mmol/L (3.5-5.1); SGOT/AST 40 U/L (15-37); SGPT/ALT 25 U/L (13-61); SODIUM 140 mmol/L (136-145); TOT PROT 8.4 g/dl (6.4-8.2)
[2018-08-12 11:33] VITALS: BP 123/67; PULSE 70
== END 2018-08-12 11:42 | disposition home or self-care (01) ==
LOC: JER 09:52
PROC: 3E0337Z Introduction of Electrolytic and Water Balance Substance into Peripheral Vein, Percutaneous Approach (ICD-10-PCS; principal; 2018-08-12)
PROC: 3E033GC Introduction of Other Therapeutic Substance into Peripheral Vein, Percutaneous Approach (ICD-10-PCS; 2018-08-12)
DX: R19.7 Diarrhea, unspecified (principal)
CPT/HCPCS: 36415; 80053; 83690; 84703; 85025; 94640; 96374; 99282-25

== ENCOUNTER 2018-10-26 19:47 | Emergency (ER) | payer OTHER ==
[2018-10-26 20:07] VITALS: BP 106/60; PULSE 87; TEMP 99.2; BMI 24.2
--- NOTE | 2018-10-26 20:51 | PDOC ---
History of Present Illness - General Chief Complaint: Injury Stated Complaint: INJURY Time Seen by Provider: 10/26/18 20:27 - History of Present Illness Initial Comments: 10/26/18 20:47 23-year-old female without comorbidities presents for evaluation of left fifth toe pain after banging it into a wall Past History - Past Medical History Allergies/Adverse Reactions: Allergies Allergy/AdvReac Type Severity Reaction Status Date / Time Penicillins Allergy Intermediate Hives Verified 10/26/18 20:07 Home Medications: Ambulatory Orders NK [No Known Home Medication] 10/26/18 Asthma: No Cancer: No Cardiac Disorders: No COPD: No Diabetes: No HTN: No Seizures: No Thyroid Disease: No - Reproductive History (#): 3 Para: 0 Cervical CA: No Dysfunctional Uterine Bleeding: No Ectopic : No Endometrial CA: No Polycystic Ovaries: No Tubal Ligation: No Spontaneous : 2 - Immunization History Immunization Up to Date: Yes - Suicide/Smoking/Psychosocial Hx Smoking History: Never smoked Have you smoked in the past 12 months: No If you are a former smoker, when did you quit?: 06/2016 Information on smoking cessation initiated: No Hx Alcohol Use: Yes (social) Drug/Substance Use Hx: No Substance Use Type: None Hx Substance Use Treatment: No Review of Systems - Review of Systems Musculoskeletal: Yes: Joint Pain *Physical Exam - Vital Signs Last Vital Signs Temp Pulse Resp BP Pulse Ox 99.2 F 87 18 106/60 100 10/26/18 20:03 10/26/18 20:03 10/26/18 20:03 10/26/18 20:03 10/26/18 20:03 - Physical Exam Comments: 10/26/18 20:48 There is mild swelling about the left fifth toe tenderness about the proximal phalanx without malrotation on gentle passive range of motion no gross sensorimotor deficits Moderate Sedation - Procedure Monitoring Vital Signs: Procedure Monitoring Vital Signs Temperature 99.2 F 10/26/18 20:03 Pulse Rate 87 10/26/18 20:03 Respiratory Rate 18 10/26/18 20:03 Blood Pressure 106/60 10/26/18 20:03 O2 Sat by Pulse Oximetry (%) 100 10/26/18 20:03 ED Treatment Course - RADIOLOGY Radiology Studies Ordered: Category Date Time Status TOE(S) LEFT [RAD] Stat Radiology 10/26/18 20:32 Ordered Medical Decision Making - Medical Decision Making 10/26/18 20:48 X-ray show a minimally displaced fracture at the base of the proximal phalanx of the left fifth toe. Weight-bear as tolerated with the use of the [employer] shoe alexy tape and crutches follow-up with orthopedic *DC/Admit/Observation/Transfer Diagnosis at time of Disposition: Fractured toe - Discharge Dispostion Disposition: HOME Condition at time of disposition: Stable Decision to Admit order: No - Referrals Referrals: Aubrey Crowley MD [Staff Physician] - - Patient Instructions Printed Discharge Instructions: Toe Fracture, DI for Toe Fracture Additional Instructions: Weight-bear as tolerated with the use of the [employer] shoe and crutches. Follow- up with orthopedic surgery one to 2 days for further evaluation and treatment options. Return to the emergency room should symptoms worsen or go unresolved. Tylenol and MOtrin as directed for pain - Post Discharge Activity
== END 2018-10-26 20:57 | disposition home or self-care (01) ==
LOC: JERFT 19:47
DX: S92.512A Displaced fracture of proximal phalanx of left lesser toe(s), initial encounter for closed fracture (principal); W22.01XA Walked into wall, initial encounter; Y93.89 Activity, other specified; Y92.89 Other specified places as the place of occurrence of the external cause; Y99.8 Other external cause status
CPT/HCPCS: 73660-TC-LT-FY; 99281-25

== ENCOUNTER 2019-06-19 19:21 | Emergency (ER) | payer OTHER ==
[2019-06-19 19:30] VITALS: BP 91/68; PULSE 99; TEMP 97.8; BMI 22.8
[2019-06-19] MEDS ORDERED: SODIUM CHLORIDE 0.9% 500 ML INFUS.BAG IV ONE (20:22)
[2019-06-19] MEDS ORDERED: ONDANSETRON 4 MG/2 ML VIAL IVPUSH ONE (20:22)
[2019-06-19] MEDS ORDERED: ONDANSETRON 4 MG/2 ML VIAL ONE (20:32)
[2019-06-19 20:46] LABS: BASO % 0.5 % (0-2.0); HEMATOCRIT 45.6 % (32.4-45.2); HEMOGLOBIN 15.3 GM/dL (10.7-15.3); LYMPH % 10.7 % (8-40); MCH 32.2 pg (25.7-33.7); MCHC 33.5 g/dl (32.0-36.0); MEAN CELL VOLUME 95.9 fl (80-96); MEAN PLT VOLUME 8.6 fl (7.5-11.1); MONO % 4.8 % (3.8-10.2); PLATELET COUNT 313 K/MM3 (134-434); RBC 4.75 M/mm3 (3.60-5.2); RDW 13.1 % (11.6-15.6); WHITE BLOOD COUNT 13.3 K/mm3 (4.0-10.0)
[2019-06-19 20:49] LABS: EPI CELLS 3.3 /HPF (0-5/HPF); HYALINE CASTS 4 /lpf (0-8); URINE APPEARANCE CLEAR; URINE BILIRUBIN NEGATIVE (NEGATIVE); URINE COLOR YELLOW; URINE GLUCOSE (UA) NEGATIVE (NEGATIVE); URINE KETONE 4+ (NEGATIVE); URINE LEUK ESTERASE NEGATIVE (NEGATIVE); URINE NITRITE NEGATIVE (NEGATIVE); URINE PROTEIN 2+ (NEGATIVE); URINE WBC 2 /hpf (0-5)
[2019-06-19 20:51] LABS: URINE RBC 10.4 /hpf (0-4)
--- NOTE | 2019-06-19 20:51 | PDOC ---
History of Present Illness - General Chief Complaint: Nausea/Vomiting Stated Complaint: NAUSEA/VOMITING Time Seen by Provider: 06/19/19 20:11 - History of Present Illness Initial Comments: Mark Lauren is an otherwise healthy 24yo woman who presents to the ED with nausea and frequent vomiting since this morning. She reports that she was out with friends yesterday, drank whiskey and 2 beers along with an ecstasy pill. She states that she woke up out of sleep this morning already vomiting. She has had episodes of emesis throughout the day every time she attempts to eat or drink. She states that the emesis is NBNB, and appears to be whatever she tries to eat. She reports that she has never had a similar reaction in the past, though per chart review she has been seen for similar symptoms in the ED. Ms Lauren says that she has not used ecstasy since approximately age 18, so she does not know if she had a similar reaction previously. She denies any fever, abdominal pain, diarrhea, sick contacts, unusual foods, or recent travel. She says that she had a miscarriage on 05/18 and has not had her period since; LMP previously was in April. Past History - Past Medical History Allergies/Adverse Reactions: Allergies Allergy/AdvReac Type Severity Reaction Status Date / Time Penicillins Allergy Intermediate Hives Verified 06/19/19 20:15 Home Medications: Ambulatory Orders NK [No Known Home Medication] 10/26/18 Asthma: No Cancer: No Cardiac Disorders: No COPD: No Diabetes: No HTN: No Seizures: No Thyroid Disease: No - Reproductive History (#): 3 Para: 0 Cervical CA: No Dysfunctional Uterine Bleeding: No Ectopic : No Endometrial CA: No Polycystic Ovaries: No Tubal Ligation: No Spontaneous : 2 - Immunization History Immunization Up to Date: Yes - Suicide/Smoking/Psychosocial Hx Smoking History: Never smoked Have you smoked in the past 12 months: No If you are a former smoker, when did you quit?: 06/2016 Hx Alcohol Use: Yes (socially) Drug/Substance Use Hx: Yes (marijuana) Substance Use Type: None Hx Substance Use Treatment: No Review of Systems - Review of Systems Comments:: General: No fevers, no chills, no weight or appetite change, no malaise HEENT: No changes in vision, no changes in hearing, no congestion, no sore throat CV: No chest pain, no palpitations, no LE edema Pulm: No SOB, no cough, no wheezing GI: See HPI : No frequency, no urgency, no dysuria Musc: No back pain, no joint swelling, no recent injury Skin: No rash, no lesions, no erythema Endo: No excessive thirst, no heat/cold intolerance Heme: No unusual bruising or bleeding, no swollen glands Neuro: No syncope, no numbness/tingling, no focal weakness Vasc: No claudication Psych: No recent change in mood, no SI or HI *Physical Exam - Vital Signs Last Vital Signs Temp Pulse Resp BP Pulse Ox 97.8 F 99 H 19 91/68 100 06/19/19 19:25 06/19/19 19:25 06/19/19 19:25 06/19/19 19:25 06/19/19 19:25 - Physical Exam Comments: General: Comfortable, no acute distress HEENT: PERRL, EOMI, MMM, voice normal, normal neck ROM Cards: RRR, no murmur appreciated Pulm: Comfortable on room air, clear to auscultation bilaterally Abd: Soft, nontender, nondistended Ext: Atraumatic. No LE edema. ROM intact. WWP Skin: Normal color, no rashes or lesions Neuro: A&Ox3, CN grossly intact, normal speech, motor/sensory grossly intact and symmetric Psych: Mood appropriate to situation ED Treatment Course - LABORATORY CBC & Chemistry Diagram: 06/19/19 20:34 06/19/19 20:34 Medical Decision Making - Medical Decision Making 06/19/19 20:34 Mark Lauren is an otherwise healthy 24yo woman who presents to the ED with nausea and frequent NBNB vomiting since this morning after going out last night ; she reports drinking whiskey, beer and taking ecstasy. - Most likely nausea/vomiting secondary to alcohol and esctasy use. No abdominal pain, diarrhea, travel, sick contacts suggesting infectious illness or acute abdomen. Unlikely cholecystitis or appendicitis without abdominal pain. Possibly pancreatitis, - CBC, CMP, lipase, UA, urinep reg - IVF, zofran 06/19/19 20:57 - UA w/ 4+ ketones, likely dehydrated. Additional IVF ordered - Urine preg negative - Labs sent, pending. - Will re-evaluate after labs 06/19/19 22:13 - Labs completed, no concerning abnormalities - Pt now requesting water, nausea resolved - Will d/c home after completing IVF Discussed with Dr Rashawn Sahu PGY2 *DC/Admit/Observation/Transfer Diagnosis at time of Disposition: Nausea & vomiting Qualifiers: Vomiting type: unspecified Vomiting Intractability: non-intractable Qualified Code(s): R11.2 - Nausea with vomiting, unspecified - Discharge Dispostion Disposition: HOME Condition at time of disposition: Stable Decision to Admit order: No - Referrals Referrals: [facility] [place] [facility] [place] [Provider Group] - Patient Instructions Printed Discharge Instructions: DI for Vomiting -- Adult Additional Instructions: Discharge Instructions: You were seen in the emergency department for nausea and vomiting. This is most likely due to use of alcohol/drugs and should improve with time. Home Care and Follow Up: - Make sure you are staying well hydrated at home. - Avoid greasy/oily, spicy foods, caffeine, alcohol, or dairy products until you are feeling better - It is strongly recommended that you do not have more than 2 drinks at a time - Do not take ecstasy or any other drugs; these can cause significant health problems, and there is no way to know what chemicals you may be ingesting. - You have been given contact information for the [facility] [place] clinic. Please call on Friday to set up an appointment to establish care with a primary doctor - Seek immediate care if your symptoms worsen, you have persistent vomiting, you are unable to stay hydrated, or you have any other medical emergency. - Post Discharge Activity
[2019-06-19] MEDS ORDERED: LACTATED RINGERS SOLUTION 1000 ML INFUS.BAG IV ONE (21:00)
[2019-06-19 21:14] LABS: ALBUMIN 4.6 g/dl (3.4-5.0); BILIRUBIN,TOTAL 0.9 mg/dL (0.2-1); BLOOD UREA NITROGEN 14.4 mg/dL (7-18); CALCIUM 9.3 mg/dL (8.5-10.1); CREATININE 0.8 mg/dL (0.55-1.3); POTASSIUM 4.2 mmol/L (3.5-5.1); TOT PROT 7.8 g/dl (6.4-8.2)
== END 2019-06-19 23:48 | disposition home or self-care (01) ==
LOC: JER 19:21
PROC: 3E033GC Introduction of Other Therapeutic Substance into Peripheral Vein, Percutaneous Approach (ICD-10-PCS; principal; 2019-06-19)
PROC: 3E0337Z Introduction of Electrolytic and Water Balance Substance into Peripheral Vein, Percutaneous Approach (ICD-10-PCS; 2019-06-19)
DX: R11.2 Nausea with vomiting, unspecified (principal)
CPT/HCPCS: 36415; 80053; 81003; 83690; 84703; 85025; 96374; 99284-25

== ENCOUNTER 2019-12-11 00:32 | Emergency (ER) | payer OTHER ==
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
[2019-12-11 01:00] VITALS: BMI 44.3
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
[2019-12-11 01:32] LABS: BASO % 0.4 % (0-2.0); HEMATOCRIT 37.6 % (32.4-45.2); HEMOGLOBIN 12.8 GM/dL (10.7-15.3); LYMPH % 8.3 % (8-40); MCH 32.1 pg (25.7-33.7); MCHC 33.9 g/dl (32.0-36.0); MEAN CELL VOLUME 94.5 fl (80-96); MEAN PLT VOLUME 8.6 fl (7.5-11.1); MONO % 8.3 % (3.8-10.2); PLATELET COUNT 250 K/MM3 (134-434); RBC 3.98 M/mm3 (3.60-5.2); RDW 12.8 % (11.6-15.6); WHITE BLOOD COUNT 19.1 K/mm3 (4.0-10.0)
[2019-12-11 01:47] LABS: INR 1.13 (0.83-1.09); PROTHROMBIN TIME (PATIENT) 13.4 SEC (9.7-13.0)
[2019-12-11 02:14] LABS: ALBUMIN 3.7 g/dl (3.4-5.0); ALK PHOS 37 U/L (45-117); ANION GAP 8 MMOL/L (8-16); BLOOD UREA NITROGEN 13.4 mg/dL (7-18); CALCIUM 8.5 mg/dL (8.5-10.1); CHLORIDE 107 mmol/L (98-107); CO2 24 mmol/L (21-32); CREATININE 0.6 mg/dL (0.55-1.3); GLUCOSE,RANDOM 88 mg/dL (74-106); POTASSIUM 3.4 mmol/L (3.5-5.1); SGOT/AST 58 U/L (15-37); SGPT/ALT 39 U/L (13-61); SODIUM 139 mmol/L (136-145); TOT PROT 6.8 g/dl (6.4-8.2)
[2019-12-11] MEDS ORDERED: SODIUM CHLORIDE 0.9% 500 ML INFUS.BAG IV ONE (02:27)
[2019-12-11] MEDS ORDERED: SODIUM CHLORIDE 1,000 ML IV STA ×2 (03:49→05:13)
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
[2019-12-11 09:23] LABS: URINE APPEARANCE Clear; URINE BILIRUBIN Negative (NEGATIVE); URINE COLOR Yellow; URINE GLUCOSE (UA) Negative (NEGATIVE); URINE KETONE Negative (NEGATIVE); URINE LEUK ESTERASE Trace (NEGATIVE); URINE NITRITE Negative (NEGATIVE); URINE PROTEIN Negative (NEGATIVE); URINE UROBILINOGEN 0.2 mg/dL (0.2-1.0)
[2019-12-11 10:10] VITALS: BP 96/57; PULSE 88; TEMP 97.9
--- NOTE | 2019-12-11 10:29 | EKG ---
Test Reason : Blood Pressure : / mmHG Vent. Rate : 096 BPM Atrial Rate : 096 BPM P-R Int : 154 ms QRS Dur : 084 ms QT Int : 330 ms P-R-T Axes : 000 097 150 degrees QTc Int : 416 ms NORMAL SINUS RHYTHM RIGHTWARD AXIS ABNORMAL ECG WHEN COMPARED WITH ECG OF 04-JUL-2017 23:30, NON-SPECIFIC CHANGE IN ST SEGMENT IN LATERAL LEADS Confirmed by Julio Sun MD ([id number]) on 12/11/2019 10:28:24 AM Referred By: Confirmed By:Julio Sun MD
[2019-12-11 11:24] LABS: EPI CELLS FEW /HPF (0-5/HPF); URINE BACTERIA FEW /hpf (NEGATIVE); URINE RBC 0-3 /hpf (0-4); URINE WBC 0-3 /hpf (0-5)
== END 2019-12-11 10:12 | disposition home or self-care (01) ==
LOC: JER 00:32
PROC: 3E0337Z Introduction of Electrolytic and Water Balance Substance into Peripheral Vein, Percutaneous Approach (ICD-10-PCS; principal; 2019-12-11)
DX: S29.8XXA Other specified injuries of thorax, initial encounter (principal); Y04.2XXA Assault by strike against or bumped into by another person, initial encounter; Y93.89 Activity, other specified; Y92.89 Other specified places as the place of occurrence of the external cause; Y99.8 Other external cause status; Z88.0 Allergy status to penicillin
CPT/HCPCS: 36415; 71046-TC-FY; 72125-TC; 72128-TC; 80053; 80307; 81003; 82550; 82553; 84484; 84703; 85025; 85610; 87086; 93005; 93010; 99285-25; J7030

== ENCOUNTER 2021-04-24 13:12 | Emergency (ER) | payer OTHER ==
[2021-04-24 13:27] VITALS: BP 126/77; PULSE 105; TEMP 98.7; BMI 25.7
[2021-04-24] MEDS ORDERED: ACETAMINOPHEN 500 MG TABLET (FP) PO ONE (13:54)
[2021-04-24] MEDS ORDERED: ACETAMINOPHEN 500 MG TABLET (FP) ONE (13:57)
== END 2021-04-24 17:33 | disposition home or self-care (01) ==
LOC: JERFT 13:12
DX: S29.011A Strain of muscle and tendon of front wall of thorax, initial encounter (principal); S09.92XA Unspecified injury of nose, initial encounter
CPT/HCPCS: 70486-TC; 71046-TC-FY; 71111-TC-FY; 99285-25

== ENCOUNTER 2023-01-03 00:09 | Emergency (ER) | payer OTHER ==
[2023-01-03 00:15] VITALS: BP 123/64; PULSE 97; RESP 18; TEMP 97.3; BMI 26.6
[2023-01-03] MEDS ORDERED: ONDANSETRON 4 MG/2 ML VIAL IVPUSH ONE (00:40)
[2023-01-03] MEDS ORDERED: ACETAMINOPHEN 1000 MG/100 ML BAG IVPB ONE (00:40)
[2023-01-03 01:31] LABS: EOS % 0.7 % (0-4.5); HEMOGLOBIN 13.9 GM/dL (10.7-15.3)
[2023-01-03 01:38] LABS: BASO % 0.8 % (0-2.0); HEMATOCRIT 40.2 % (32.4-45.2); LYMPH % 42.4 % (8-40); MCH 32.5 pg (25.7-33.7); MCHC 34.7 g/dl (32.0-36.0); MEAN CELL VOLUME 93.8 fl (80-96); MEAN PLT VOLUME 8.3 fl (7.5-11.1); MONO % 9.3 % (3.8-10.2); NEUT % 46.8 % (42.8-82.8); PLATELET COUNT 301 10^3/uL (134-434); RBC 4.28 M/mm3 (3.60-5.2); RDW 12.9 % (11.6-15.6); WHITE BLOOD COUNT 9.3 K/mm3 (4.0-10.0)
[2023-01-03 01:55] LABS: ALBUMIN 3.8 g/dl (3.4-5.0); BLOOD UREA NITROGEN 17.6 mg/dL (7-18); CALCIUM 9.2 mg/dL (8.5-10.1)
[2023-01-03 02:00] LABS: BILIRUBIN,TOTAL 0.3 mg/dL (0.2-1)
[2023-01-03] MEDS ORDERED: ONDANSETRON 4 MG/2 ML VIAL ONE (02:01)
[2023-01-03] MEDS ORDERED: ACETAMINOPHEN INJECTION 100 ML IVPB ONE (02:01)
[2023-01-03 03:51] LABS: URINE APPEARANCE CLEAR; URINE BILIRUBIN NEGATIVE (NEGATIVE); URINE COLOR YELLOW; URINE GLUCOSE (UA) NEGATIVE (NEGATIVE); URINE KETONE TRACE (NEGATIVE); URINE LEUK ESTERASE NEGATIVE (NEGATIVE); URINE NITRITE NEGATIVE (NEGATIVE); URINE PROTEIN NEGATIVE (NEGATIVE); URINE UROBILINOGEN 0.2 mg/dL (0.2-1.0)
== END 2023-01-03 04:38 | disposition home or self-care (01) ==
LOC: JER 00:09
PROC: 3E033NZ Introduction of Analgesics, Hypnotics, Sedatives into Peripheral Vein, Percutaneous Approach (ICD-10-PCS; principal; 2023-01-03)
PROC: 3E033GC Introduction of Other Therapeutic Substance into Peripheral Vein, Percutaneous Approach (ICD-10-PCS; 2023-01-03)
DX: R10.31 Right lower quadrant pain (principal); R11.0 Nausea
CPT/HCPCS: 36415; 76830-TC; 80053; 81003; 84703; 85025; 87086; 99284-25

== ENCOUNTER 2023-01-29 15:35 | Emergency (ER) | payer OTHER ==
[2023-01-29 15:42] VITALS: RESP 18; BMI 25.8
[2023-01-29] MEDS ORDERED: SODIUM CHLORIDE 1,000 ML IV STA (16:30)
[2023-01-29] MEDS ORDERED: ACETAMINOPHEN 1000 MG/100 ML BAG IVPB ONE (16:31)
[2023-01-29] MEDS ORDERED: ACETAMINOPHEN INJECTION 100 ML IVPB ONE (16:37)
[2023-01-29 17:20] LABS: EOS % 0.5 % (0-4.5); HEMATOCRIT 38.9 % (32.4-45.2); HEMOGLOBIN 13.7 GM/dL (10.7-15.3); LYMPH % 36.3 % (8-40); MCH 33.4 pg (25.7-33.7); MCHC 35.3 g/dl (32.0-36.0); MEAN CELL VOLUME 94.6 fl (80-96); MEAN PLT VOLUME 8.6 fl (7.5-11.1); MONO % 10.3 % (3.8-10.2); NEUT % 51.9 % (42.8-82.8); PLATELET COUNT 314 10^3/uL (134-434); RBC 4.11 M/mm3 (3.60-5.2); RDW 12.9 % (11.6-15.6); WHITE BLOOD COUNT 8.8 K/mm3 (4.0-10.0)
[2023-01-29 17:20] LABS: PH,URINE 7.5 (5.0-8.0); URINE APPEARANCE CLEAR; URINE BILIRUBIN NEGATIVE (NEGATIVE); URINE COLOR YELLOW; URINE GLUCOSE (UA) NEGATIVE (NEGATIVE); URINE KETONE TRACE (NEGATIVE); URINE LEUK ESTERASE NEGATIVE (NEGATIVE); URINE NITRITE NEGATIVE (NEGATIVE); URINE PROTEIN NEGATIVE (NEGATIVE)
[2023-01-29 17:23] LABS: HCG,QUALITATIVE URINE Negative
[2023-01-29 17:38] LABS: CALCIUM 9.1 mg/dL (8.5-10.1)
[2023-01-29 17:39] LABS: ALBUMIN 4.2 g/dl (3.4-5.0); BLOOD UREA NITROGEN 10.7 mg/dL (7-18)
[2023-01-29 17:41] LABS: CREATININE 0.7 mg/dL (0.55-1.3)
[2023-01-29 17:43] LABS: BILIRUBIN,TOTAL 0.7 mg/dL (0.2-1); TOT PROT 7.5 g/dl (6.4-8.2)
[2023-01-29 17:49] VITALS: TEMP 98.9
[2023-01-29] MEDS ORDERED: LIDOCAINE 5% TOPICAL PATCH TP ONE (17:51)
[2023-01-29] MEDS ORDERED: KETOROLAC TROMETHAMINE 30 MG/1 ML VIAL IM ONE (17:52)
[2023-01-29] MEDS ORDERED: LIDOCAINE 5% TOPICAL PATCH ONE (18:14)
[2023-01-29] MEDS ORDERED: KETOROLAC TROMETHAMINE 30 MG/1 ML VIAL ONE (18:15)
[2023-01-29 18:37] VITALS: BP 101/55; PULSE 67
== END 2023-01-29 18:46 | disposition home or self-care (01) ==
LOC: JER 15:35
PROC: 3E033NZ Introduction of Analgesics, Hypnotics, Sedatives into Peripheral Vein, Percutaneous Approach (ICD-10-PCS; principal; 2023-01-29)
PROC: 3E0233Z Introduction of Anti-inflammatory into Muscle, Percutaneous Approach (ICD-10-PCS; 2023-01-29)
PROC: 3E0337Z Introduction of Electrolytic and Water Balance Substance into Peripheral Vein, Percutaneous Approach (ICD-10-PCS; 2023-01-29)
DX: M54.50 Low back pain, unspecified (principal); N76.0 Acute vaginitis; B96.89 Other specified bacterial agents as the cause of diseases classified elsewhere; R30.9 Painful micturition, unspecified; N89.8 Other specified noninflammatory disorders of vagina; L29.2 Pruritus vulvae
CPT/HCPCS: 36415; 80053; 81003; 83690; 84703; 85025; 87070; 87086; 87205; 99284-25

== ENCOUNTER 2023-05-29 21:31 | Emergency (ER) | payer OTHER ==
[2023-05-29 21:38] VITALS: BP 129/71; PULSE 96; RESP 18; TEMP 98.9; BMI 23.3
[2023-05-29] MEDS ORDERED: KETOROLAC TROMETHAMINE 30 MG/1 ML VIAL IM ONE (22:22)
[2023-05-29] MEDS ORDERED: ACETAMINOPHEN 325 MG TABLET (FP) PO ONE (22:23)
[2023-05-29] MEDS ORDERED: KETOROLAC TROMETHAMINE 30 MG/1 ML VIAL ONE (22:36)
[2023-05-29] MEDS ORDERED: ACETAMINOPHEN 325 MG TABLET (FP) ONE (22:36)
[2023-05-29] MEDS ORDERED: PSEUDOEPHEDRINE HCL 60 MG TABLET PO ONE (23:08)
[2023-05-29] MEDS ORDERED: PSEUDOEPHEDRINE HCL 60 MG TABLET ONE (23:09)
== END 2023-05-29 23:11 | disposition home or self-care (01) ==
LOC: JERFT 21:31
PROC: 3E0233Z Introduction of Anti-inflammatory into Muscle, Percutaneous Approach (ICD-10-PCS; principal; 2023-05-29)
DX: R51.9 Headache, unspecified (principal); J34.89 Other specified disorders of nose and nasal sinuses
CPT/HCPCS: 99284-25

== ENCOUNTER 2023-06-22 11:21 | Emergency (ER) | payer OTHER ==
[2023-06-22 11:27] VITALS: RESP 18; BMI 22.9
[2023-06-22] MEDS ORDERED: SODIUM CHLORIDE 0.9% 500 ML INFUS.BAG IV ONE (12:28)
[2023-06-22] MEDS ORDERED: FAMOTIDINE 20 MG/50 ML IVPB 20 MG/50 ML MG IVPB ONE ×2 (12:28→12:45)
[2023-06-22] MEDS ORDERED: ACETAMINOPHEN 1000 MG/100 ML BAG IVPB ONE (12:28)
[2023-06-22] MEDS ORDERED: ONDANSETRON 4 MG/2 ML VIAL IVPB ONE (12:30)
[2023-06-22] MEDS ORDERED: ACETAMINOPHEN INJECTION 100 ML IVPB ONE (12:44)
[2023-06-22] MEDS ORDERED: ONDANSETRON 4 MG/2 ML VIAL ONE (12:45)
[2023-06-22 12:52] LABS: BASO % 1.2 % (0-2.0); EOS % 0.3 % (0-4.5); HEMATOCRIT 42.4 % (32.4-45.2); HEMOGLOBIN 14.8 GM/dL (10.7-15.3); LYMPH % 24.8 % (8-40); MCH 32.2 pg (25.7-33.7); MCHC 34.9 g/dl (32.0-36.0); MEAN CELL VOLUME 92.4 fl (80-96); MEAN PLT VOLUME 7.7 fl (7.5-11.1); MONO % 6.2 % (3.8-10.2); NEUT % 67.5 % (42.8-82.8); PLATELET COUNT 361 10^3/uL (134-434); RBC 4.59 M/mm3 (3.60-5.2); RDW 12.7 % (11.6-15.6); WHITE BLOOD COUNT 9.6 K/mm3 (4.0-10.0)
[2023-06-22 13:17] LABS: CHLORIDE 113 mmol/L (98-107); POTASSIUM 4.1 mmol/L (3.5-5.1); SODIUM 149 mmol/L (136-145)
[2023-06-22 13:19] LABS: CALCIUM 9.3 mg/dL (8.5-10.1); GLUCOSE,RANDOM 93 mg/dL (74-106)
[2023-06-22 13:20] LABS: ALBUMIN 4.3 g/dl (3.4-5.0); ANION GAP 9 MMOL/L (8-16); BLOOD UREA NITROGEN 10.1 mg/dL (7-18); CO2 27 mmol/L (21-32)
[2023-06-22 13:22] LABS: SGPT/ALT 21 U/L (13-61)
[2023-06-22 13:23] LABS: CREATININE 0.7 mg/dL (0.55-1.3); SGOT/AST 12 U/L (15-37)
[2023-06-22 13:24] LABS: BILIRUBIN,TOTAL 0.3 mg/dL (0.2-1); TOT PROT 7.8 g/dl (6.4-8.2)
[2023-06-22 13:25] LABS: ALK PHOS 40 U/L (45-117)
[2023-06-22 14:40] LABS: PH,URINE 7.5 (5.0-8.0); URINE APPEARANCE CLEAR; URINE BILIRUBIN NEGATIVE (NEGATIVE); URINE COLOR YELLOW; URINE GLUCOSE (UA) NEGATIVE (NEGATIVE); URINE KETONE NEGATIVE (NEGATIVE); URINE LEUK ESTERASE NEGATIVE (NEGATIVE); URINE NITRITE NEGATIVE (NEGATIVE); URINE PROTEIN NEGATIVE (NEGATIVE); URINE UROBILINOGEN 0.2 mg/dL (0.2-1.0)
[2023-06-22 14:54] LABS: URINE AMPHETAMINES NEGATIVE (NEGATIVE)
[2023-06-22 14:55] LABS: COCAINE, UR NEGATIVE (NEGATIVE); OPIATES, URI NEGATIVE (NEGATIVE); PHENCYCLIDINE,URINE NEGATIVE (NEGATIVE)
[2023-06-22 15:02] LABS: METHADONE, UR NEGATIVE (NEGATIVE); URINE BARBITURATES NEGATIVE (NEGATIVE); URINE BENZODIAZEPINES NEGATIVE (NEGATIVE)
[2023-06-22 15:20] VITALS: BP 102/63; PULSE 70; TEMP 98.6
== END 2023-06-22 15:34 | disposition home or self-care (01) ==
LOC: JER 11:21
PROC: 3E033GC Introduction of Other Therapeutic Substance into Peripheral Vein, Percutaneous Approach (ICD-10-PCS; principal; 2023-06-22)
PROC: 3E033GC Introduction of Other Therapeutic Substance into Peripheral Vein, Percutaneous Approach (ICD-10-PCS; 2023-06-22)
PROC: 3E033GC Introduction of Other Therapeutic Substance into Peripheral Vein, Percutaneous Approach (ICD-10-PCS; 2023-06-22)
DX: R11.2 Nausea with vomiting, unspecified (principal); R10.13 Epigastric pain; F10.229 Alcohol dependence with intoxication, unspecified
CPT/HCPCS: 36415; 80053; 80307; 81003; 83690; 84702; 85025; 87086; 99284-25

== ENCOUNTER 2023-09-24 23:48 | Emergency (ER) | payer OTHER ==
[2023-09-24 23:52] VITALS: BP 112/62; PULSE 81; RESP 20; TEMP 97.6; BMI 25.4
[2023-09-25] MEDS ORDERED: KETOROLAC TROMETHAMINE 30 MG/1 ML VIAL IM ONE (01:11)
[2023-09-25] MEDS ORDERED: LIDOCAINE 4% PATCH TP ONE ×2 (01:11→01:15)
[2023-09-25] MEDS ORDERED: METHOCARBAMOL 750 MG TABLET PO ONE (01:12)
[2023-09-25] MEDS ORDERED: METHOCARBAMOL 500 MG TABLET ONE (01:14)
[2023-09-25] MEDS ORDERED: KETOROLAC TROMETHAMINE 30 MG/1 ML VIAL ONE (01:15)
[2023-09-25] MEDS ORDERED: LIDOCAINE PATCH REMOVAL MC SCH (22:00)
== END 2023-09-25 02:23 | disposition home or self-care (01) ==
LOC: JER 23:48
PROC: 3E0233Z Introduction of Anti-inflammatory into Muscle, Percutaneous Approach (ICD-10-PCS; principal; 2023-09-25)
DX: M54.50 Low back pain, unspecified (principal)
CPT/HCPCS: 99284-25

== ENCOUNTER 2023-10-28 19:07 | Emergency (ER) | payer OTHER ==
[2023-10-28 19:21] VITALS: BP 124/75; PULSE 83; RESP 18; TEMP 99.8; BMI 25.0
[2023-10-28] MEDS ORDERED: ACETAMINOPHEN 500 MG TABLET (FP) PO ONE (20:03)
[2023-10-28] MEDS ORDERED: ACETAMINOPHEN 500 MG TABLET (FP) ONE (20:18)
[2023-10-28] MEDS ORDERED: KETOROLAC TROMETHAMINE 30 MG/1 ML VIAL IM ONE (20:41)
== END 2023-10-28 21:06 | disposition home or self-care (01) ==
LOC: JER 19:07 → JERFT 19:07
DX: S60.221A Contusion of right hand, initial encounter (principal); M79.641 Pain in right hand; W50.0XXA Accidental hit or strike by another person, initial encounter
CPT/HCPCS: 73130-TC-RT-FY; 84703; 99284-25

== ENCOUNTER 2023-12-08 12:40 | Emergency (ER) | payer OTHER ==
[2023-12-08 13:07] VITALS: BP 118/73; PULSE 102; RESP 18; TEMP 99; BMI 26.3
[2023-12-08] MEDS ORDERED: ACETAMINOPHEN 325 MG TABLET (FP) ONE (14:04)
[2023-12-08] MEDS: ACETAMINOPHEN 500 MG TABLET (FP) PO ONE (14:25)
[2023-12-08 14:48] LABS: BASO % 0.5 % (0-2.0); EOS % 0.5 % (0-4.5); HEMATOCRIT 38.4 % (32.4-45.2); HEMOGLOBIN 13.2 GM/dL (10.7-15.3); LYMPH % 20.3 % (8-40); MCH 32.1 pg (25.7-33.7); MCHC 34.4 g/dl (32.0-36.0); MEAN CELL VOLUME 93.4 fl (80-96); MEAN PLT VOLUME 7.9 fl (7.5-11.1); MONO % 8.9 % (3.8-10.2); NEUT % 69.8 % (42.8-82.8); PLATELET COUNT 374 10^3/uL (134-434); RBC 4.12 M/mm3 (3.60-5.2); RDW 12.6 % (11.6-15.6)
[2023-12-08 14:51] LABS: URINE APPEARANCE CLEAR; URINE BILIRUBIN NEGATIVE (NEGATIVE); URINE COLOR DK YELLOW; URINE GLUCOSE (UA) NEGATIVE (NEGATIVE); URINE KETONE 1+ (NEGATIVE); URINE LEUK ESTERASE NEGATIVE (NEGATIVE); URINE NITRITE NEGATIVE (NEGATIVE); URINE PROTEIN TRACE (NEGATIVE)
[2023-12-08 15:16] LABS: POTASSIUM 4.2 mmol/L (3.5-5.1)
[2023-12-08 15:19] LABS: ALBUMIN 3.7 g/dl (3.4-5.0); BLOOD UREA NITROGEN 8.6 mg/dL (7-18); CALCIUM 9.5 mg/dL (8.5-10.1)
[2023-12-08 15:22] LABS: CREATININE 0.6 mg/dL (0.55-1.3)
[2023-12-08 15:24] LABS: BILIRUBIN,TOTAL 0.6 mg/dL (0.2-1); TOT PROT 7.2 g/dl (6.4-8.2)
== END 2023-12-08 19:12 | disposition left against medical advice (07) ==
LOC: JER 12:40
DX: O26.891 Other specified pregnancy related conditions, first trimester (principal); R10.31 Right lower quadrant pain; R07.9 Chest pain, unspecified; O99.511 Diseases of the respiratory system complicating pregnancy, first trimester; R05.9 Cough, unspecified; Z3A.01 Less than 8 weeks gestation of pregnancy; Z20.822 Contact with and (suspected) exposure to COVID-19
CPT/HCPCS: 0241U-QW; 36415; 76817-TC; 80053; 81003; 84702; 85025; 86850; 86900; 86901; 87086; 93005; 93010; 99285-25

== ENCOUNTER 2023-12-12 15:37 | Emergency (ER) | payer OTHER ==
[2023-12-12 15:43] VITALS: BP 114/62; PULSE 81; RESP 19; TEMP 98; BMI 26.6
== END 2023-12-12 19:23 | disposition home or self-care (01) ==
LOC: JERFT 15:37
DX: Z34.91 Encounter for supervision of normal pregnancy, unspecified, first trimester (principal); Z3A.01 Less than 8 weeks gestation of pregnancy
CPT/HCPCS: 36415; 76817-TC; 84702; 99284-25

== ENCOUNTER 2023-12-22 17:03 | Emergency (ER) | payer OTHER ==
[2023-12-22 17:14] VITALS: BP 101/59; PULSE 76; RESP 18; TEMP 97.6; BMI 25.2
[2023-12-22] MEDS ORDERED: ACETAMINOPHEN 325 MG TABLET (FP) ONE (18:15)
[2023-12-22] MEDS: ACETAMINOPHEN 325 MG TABLET (FP) PO ONE (18:16)
[2023-12-22 18:44] LABS: PH,URINE 6.5 (5.0-8.0); URINE APPEARANCE CLEAR; URINE BILIRUBIN NEGATIVE (NEGATIVE); URINE COLOR YELLOW; URINE GLUCOSE (UA) NEGATIVE (NEGATIVE); URINE KETONE NEGATIVE (NEGATIVE); URINE LEUK ESTERASE NEGATIVE (NEGATIVE); URINE NITRITE NEGATIVE (NEGATIVE); URINE PROTEIN NEGATIVE (NEGATIVE)
== END 2023-12-22 19:29 | disposition home or self-care (01) ==
LOC: JER 17:03
DX: O9A.211 Injury, poisoning and certain other consequences of external causes complicating pregnancy, first trimester (principal); R10.2 Pelvic and perineal pain; Z3A.01 Less than 8 weeks gestation of pregnancy
CPT/HCPCS: 76817-TC; 81003; 99284-25

== ENCOUNTER 2024-04-26 22:49 | Emergency (ER) | payer OTHER ==
[2024-04-26 22:57] VITALS: BP 114/74; PULSE 95; RESP 18; TEMP 98.5; BMI 29.8
[2024-04-27] MEDS ORDERED: ACETAMINOPHEN 500 MG TABLET (FP) ONE (00:10)
[2024-04-27] MEDS ORDERED: LIDOCAINE 4% PATCH TP ONE (00:10)
[2024-04-27] MEDS: LIDOCAINE PATCH REMOVAL MC SCH (00:16)
[2024-04-27] MEDS: LIDOCAINE 4% PATCH TP ONE (00:16)
[2024-04-27] MEDS: ACETAMINOPHEN 500 MG TABLET (FP) PO ONE (00:16)
[2024-04-27 00:30] LABS: URINE APPEARANCE CLEAR; URINE BILIRUBIN NEGATIVE (NEGATIVE); URINE COLOR YELLOW; URINE GLUCOSE (UA) NEGATIVE (NEGATIVE); URINE KETONE NEGATIVE (NEGATIVE); URINE LEUK ESTERASE NEGATIVE (NEGATIVE); URINE NITRITE NEGATIVE (NEGATIVE); URINE PROTEIN NEGATIVE (NEGATIVE); URINE UROBILINOGEN 0.2 mg/dL (0.2-1.0)
[2024-04-27] MEDS ORDERED: LIDOCAINE PATCH REMOVAL MC ONE (12:00)
== END 2024-04-27 00:54 | disposition home or self-care (01) ==
LOC: JER 22:49
DX: O99.891 Other specified diseases and conditions complicating pregnancy (principal); M54.50 Low back pain, unspecified; O99.512 Diseases of the respiratory system complicating pregnancy, second trimester; J02.9 Acute pharyngitis, unspecified; Z3A.25 25 weeks gestation of pregnancy
CPT/HCPCS: 81003; 87086; 99283-25

== ENCOUNTER 2024-06-04 01:33 | Emergency (ER) | payer OTHER ==
[2024-06-04 01:42] VITALS: BP 116/59; PULSE 92; RESP 20; TEMP 98.8; BMI 34.1
[2024-06-04] MEDS ORDERED: valACYclovir HCL 500 MG TABLET (FP) ONE (02:16)
[2024-06-04] MEDS: valACYclovir HCL 500 MG TABLET (FP) PO ONE (02:25)
[2024-06-04 03:56] LABS: HIV INTERPRETATION NEGATIVE (NEGATIVE)
== END 2024-06-04 02:34 | disposition home or self-care (01) ==
LOC: JER 01:33
DX: S00.521A Blister (nonthermal) of lip, initial encounter (principal); X58.XXXA Exposure to other specified factors, initial encounter
CPT/HCPCS: 36415; 86803; 87389; 99283-25

== ENCOUNTER 2024-08-02 10:10 | Inpatient (IN) | payer OTHER ==
[2024-08-02 10:51] LABS: BASO % 0.4 % (0-2.0); EOS % 0.9 % (0-4.5); HEMATOCRIT 35.7 % (32.4-45.2); HEMOGLOBIN 12.5 GM/dL (10.7-15.3); LYMPH % 21.9 % (8-40); MEAN CELL VOLUME 94.3 fl (80-96); MEAN PLT VOLUME 7.5 fl (7.5-11.1); MONO % 9.3 % (3.8-10.2); NEUT % 67.5 % (42.8-82.8); PLATELET COUNT 307 10^3/uL (134-434); RBC 3.78 M/mm3 (3.60-5.2); RDW 13.8 % (11.6-15.6); WHITE BLOOD COUNT 9.6 K/mm3 (4.0-10.0)
[2024-08-02 10:55] LABS: INR 0.93 (0.83-1.09); PROTHROMBIN TIME (PATIENT) 10.5 SEC (9.7-13.0)
[2024-08-02 10:58] LABS: ACTIVATED PTT 27.9 SECONDS (25.2-36.5)
[2024-08-02] MEDS: ELECTROLYTE-148 SOLN 1,000 ML IV SCH (11:00)
[2024-08-02 11:10] LABS: CHLORIDE 108 mmol/L (98-107); SODIUM 136 mmol/L (136-145)
[2024-08-02 11:11] LABS: CALCIUM 8.7 mg/dL (8.5-10.1)
[2024-08-02 11:12] LABS: ANION GAP 7 mmol/L (4-13); BLOOD UREA NITROGEN 8.1 mg/dL (7-18); CO2 22 mmol/L (21-32); GLUCOSE,RANDOM 86 mg/dL (74-106)
[2024-08-02 11:15] LABS: CREATININE 0.6 mg/dL (0.55-1.3)
[2024-08-02] MEDS: CITRIC ACID/SODIUM CITRATE 30 ML UNIT-DOSE CUP PO ONE (12:00)
[2024-08-02 12:41] VITALS: BMI 32.4
[2024-08-02] MEDS ORDERED: OXYTOCIN 30 UNITS in 0.9% NS 30 UNIT/500 ML INFUS.BAG IVPB ONE (13:56)
[2024-08-02] MEDS ORDERED: CLINDAMYCIN PHOSPHATE 600 MG/4 ML VIAL ONE (13:58)
[2024-08-02] MEDS ORDERED: METOCLOPRAMIDE HCL INJECTION 10 MG/2 ML VIAL ONE (13:58)
[2024-08-02] MEDS ORDERED: FENTANYL CITRATE/PF 50 MCG/ML VIAL ONE (13:58)
[2024-08-02] MEDS ORDERED: morphine SULFATE/PF 1 MG/2 ML (2cc Syringe - QUVA) ONE (13:58)
[2024-08-02] MEDS ORDERED: ONDANSETRON 4 MG/2 ML VIAL ONE (13:58)
[2024-08-02] MEDS: OXYTOCIN 20 UNITS in 0.9% NS 20 UNIT/1,000 ML INFUS.BAG IV SCH (14:00)
[2024-08-02] MEDS ORDERED: KETOROLAC TROMETHAMINE 30 MG/1 ML VIAL ONE (15:15)
[2024-08-02] MEDS ORDERED: OXYTOCIN 20 UNITS in 0.9% NS 20 UNIT/1,000 ML INFUS.BAG IV ONE (15:34)
[2024-08-02] MEDS ORDERED: METHYLERGONOVINE MALEATE 0.2 MG/1 ML AMP IM PRN (15:43)
[2024-08-02] MEDS ORDERED: ONDANSETRON 4 MG/2 ML VIAL IVPUSH PRN (15:48)
[2024-08-02] MEDS: morphine SULFATE/PF 1 MG/2 ML (2cc Syringe - QUVA) IT ONE (17:21)
[2024-08-02] MEDS: SIMETHICONE 80 MG TAB.CHEW (FP) PO PRN (19:47)
[2024-08-02] MEDS: ACETAMINOPHEN 1000 MG/100 ML BAG IVPB PRN (19:48)
[2024-08-03] MEDS: IBUPROFEN 600 MG TABLET (FP) PO PRN (00:44)
[2024-08-03 07:33] LABS: BASO % 0.4 % (0-2.0); EOS % 1.5 % (0-4.5); HEMATOCRIT 27.5 % (32.4-45.2); HEMOGLOBIN 9.4 GM/dL (10.7-15.3); LYMPH % 20.1 % (8-40); MCH 32.8 pg (25.7-33.7); MCHC 34.2 g/dl (32.0-36.0); MEAN CELL VOLUME 95.7 fl (80-96); MEAN PLT VOLUME 7.6 fl (7.5-11.1); MONO % 8.7 % (3.8-10.2); NEUT % 69.3 % (42.8-82.8); PLATELET COUNT 211 10^3/uL (134-434); RBC 2.87 M/mm3 (3.60-5.2); RDW 13.4 % (11.6-15.6); WHITE BLOOD COUNT 9.1 K/mm3 (4.0-10.0)
[2024-08-03] MEDS: ACETAMINOPHEN 325 MG TABLET (FP) PO PRN (12:38)
[2024-08-03] MEDS: oxyCODONE HCL 5 MG TABLET PO PRN (14:38)
[2024-08-03] MEDS ORDERED: BISACODYL 10 MG SUPP.RECT RC PRN (15:43)
[2024-08-04] MEDS: oxyCODONE HCL 5 MG TABLET PO PRN (02:18)
[2024-08-05 08:31] LABS: EOS % 3.6 % (0-4.5); HEMATOCRIT 31.1 % (32.4-45.2); HEMOGLOBIN 10.8 GM/dL (10.7-15.3); LYMPH % 14.4 % (8-40); MCH 32.7 pg (25.7-33.7); MCHC 34.7 g/dl (32.0-36.0); MEAN CELL VOLUME 94.1 fl (80-96); MEAN PLT VOLUME 7.6 fl (7.5-11.1); MONO % 17.5 % (3.8-10.2); NEUT % 63.5 % (42.8-82.8); PLATELET COUNT 254 10^3/uL (134-434); RBC 3.31 M/mm3 (3.60-5.2); RDW 13.3 % (11.6-15.6); WHITE BLOOD COUNT 4.7 K/mm3 (4.0-10.0)
[2024-08-05 11:05] VITALS: PULSE 92
[2024-08-05 12:29] VITALS: BP 110/62; RESP 18; TEMP 98
== END 2024-08-05 15:15 | disposition home or self-care (01) | DRG 540 ==
LOC: JLDR 10:10 → J3W 18:12
PROVIDERS: ADMIT Obstetrics & Gynecology; ATTEND Obstetrics & Gynecology
PROC: 10D00Z1 Extraction of Products of Conception, Low, Open Approach (ICD-10-PCS; principal; 2024-08-02)
DX: O34.211 Maternal care for low transverse scar from previous cesarean delivery (principal); N85.8 Other specified noninflammatory disorders of uterus; Z3A.39 39 weeks gestation of pregnancy; Z37.0 Single live birth
CPT/HCPCS: 36415; 59409; 80048; 85025; 85610; 85730; 86780; 86850; 86900; 86901; 88307-TC; 94010; J0131

== ENCOUNTER 2024-08-09 10:25 | Emergency (ER) | payer OTHER ==
[2024-08-09 11:14] VITALS: BP 135/72; PULSE 58; RESP 17; TEMP 98.6; BMI 32.3
[2024-08-09] MEDS ORDERED: BACITRACIN 0.9 GM PACKET ONE (14:30)
[2024-08-09] MEDS ORDERED: BACITRACIN ZINC 15 GM TUBE TOPICAL OINTMENT ONE (14:32)
[2024-08-10] MEDS ORDERED: BACITRACIN/POLYMYXIN B SULFATE 15 GM TUBE TP ONE (13:50)
== END 2024-08-09 14:48 | disposition home or self-care (01) ==
LOC: JER 10:25
DX: O90.0 Disruption of cesarean delivery wound (principal)
CPT/HCPCS: 99283-25